=== PATIENT | female | born 1940 | race Caucasian/White ===

== ENCOUNTER → 2023-10-02 16:18 | Outpatient (REF) | payer MEDICARE, BC, SELFPAY | LOC: RAD 16:18 | PROVIDERS: ATTENDING PHYSICIAN Internal Medicine | DX: R60.9 Edema, unspecified (principal) | CPT/HCPCS: 93971 ==

== ENCOUNTER → 2024-03-20 20:13 | Outpatient (REF) | payer MEDICARE, BC, SELFPAY | LOC: MRI 3T 20:13 | PROVIDERS: ATTENDING PHYSICIAN Internal Medicine | DX: G30.9 Alzheimer's disease, unspecified (principal) | CPT/HCPCS: 70553; A9575 ==